=== PATIENT | male | born 1950 | race Caucasian/White ===

== ENCOUNTER 2019-10-07 11:23 | Inpatient (IN) | payer MEDICARE ==
--- NOTE | 2019-10-07 12:30 | ER Document Report ---
ED Medical Screen (RME) - General Chief Complaint: Foot Pain Stated Complaint: FOOT PAIN Time Seen by Provider: 10/07/19 12:27 Primary Care Provider: CHASIDY GANDARA NP [Primary Care Provider] - Follow up as needed Mode of Arrival: Wheelchair Information source: Patient Notes: 69-year-old female presented to ED for a large diabetic ulcer to the lateral aspect of the left foot. States he went to the wildlife veterinarian and wildlife veterinarian sent him to the ER. He does have diabetes type 2. He states that the doctor said he needed to go to the emergency room to have this surgically debrided before they could treat him. He states the last time he had any food was at 830 this morning the last time he had any fluids was at 830 this morning. States his medical history is diabetes type 2 heart murmur and he had his gallbladder removed. He states he does not drink smoke or use any illicit drugs. He is retired. Patient is alert oriented respirations regular nonlabored speaking in full sentences. He does have a very foul-smelling draining ulcer to the left bottom of the foot. I have greeted and performed a rapid initial assessment of this patient. A comprehensive ED assessment and evaluation of the patient, analysis of test results and completion of medical decision making process will be conducted by an additional ED providers. TRAVEL OUTSIDE OF THE [place] IN LAST 30 DAYS: No - Related Data Allergies/Adverse Reactions: iodine [Iodine] Allergy (Severe, Verified 10/07/19 12:22) Hives, SOB Penicillins Allergy (Severe, Verified 10/07/19 12:22) Hives, SOB Past Medical History - Past Medical History Cardiac Medical History: Reports: Hx Hypertension Denies: Hx Coronary Artery Disease, Hx Heart Attack Pulmonary Medical History: Denies: Hx Asthma, Hx Bronchitis, Hx COPD, Hx Pneumonia Neurological Medical History: Denies: Hx Cerebrovascular Accident, Hx Seizures Endocrine Medical History: Reports: Hx Diabetes Mellitus Type 2 Musculoskeltal Medical History: Reports Hx Arthritis - Generalized Past Surgical History: Reports: Hx Cholecystectomy, Hx Tonsillectomy. Denies: Hx Pacemaker - Immunizations Hx Diphtheria, Pertussis, Tetanus Vaccination: Yes Physical Exam - Vital signs Vitals: Temp Pulse Resp BP Pulse Ox 98.3 F 88 18 130/66 H 95 10/07/19 11:31 10/07/19 11:31 10/07/19 11:31 10/07/19 11:31 10/07/19 11:31 Course - Vital Signs Vital signs: Temp Pulse Resp BP Pulse Ox 98.3 F 88 18 130/66 H 95 10/07/19 11:31 10/07/19 11:31 10/07/19 11:31 10/07/19 11:31 10/07/19 11:31 Doctor's Discharge - Discharge Referrals: CHASIDY GANDARA [employer] [Primary Care Provider] - Follow up as needed
--- NOTE | 2019-10-07 13:26 | RADIOLOGY REPORT (SQ) ---
EXAM DESCRIPTION: FOOT LEFT COMPLETE IMAGES COMPLETED DATE/TIME: 10/07/2019 1:11 pm REASON FOR STUDY: Large diabetic ulcer bottom of the foot COMPARISON: None. NUMBER OF VIEWS: Three views. TECHNIQUE: AP, lateral and oblique radiographic images acquired of the left foot. LIMITATIONS: None. FINDINGS: MINERALIZATION: Decreased. BONES: No fracture. No definitive bony erosion or sclerosis. Decreased mineralization most signific ant about the distal metatarsals and proximal phalanges. JOINTS: No effusions. SOFT TISSUES: Soft tissue ulceration along the plantar aspect of the forefoot. Forefoot soft tissue swelling. OTHER: No other significant finding. IMPRESSION: Soft tissue ulceration and swelling about the lateral forefoot. No definitive findings of osteomyelitis. If high clinical concern MRI would be more sensitive. TECHNICAL DOCUMENTATION: JOB ID: [id number] 2010 [email or web address]- All Rights Reserved Reading location - IP/workstation name: [email or web address]
[2019-10-07 15:14] LABS: ABSOLUTE BASOPHILS # (AUTO) 0.1 10^3/uL (0.0-0.2); ABSOLUTE EOSINOPHILS # (AUTO) 0.2 10^3/uL (0.0-0.6); ABSOLUTE LYMPHOCYTES (AUTO) 2.1 10^3/uL (0.5-4.7); ABSOLUTE MONOCYTES (AUTO) 0.9 10^3/uL (0.1-1.4); ABSOLUTE NEUT (AUTO) 6.9 10^3/uL (1.7-8.2); BASOPHILS % (AUTO) 0.7 % (0-2); EOSINOPHILS % (AUTO) 1.7 % (0-6); HEMATOCRIT 44.2 % (37.9-51.0); HEMOGLOBIN 15.2 g/dL (13.5-17.0); MEAN CORPUSCULAR HEMOGLOBIN 31.4 pg (27.0-33.4); MEAN CORPUSCULAR HGB CONC 34.4 g/dL (32.0-36.0); MEAN CORPUSCULAR VOLUME 91 fl (80-97); MONOCYTES % (AUTO) 8.6 % (3-13); PLATELET COUNT 369 10^3/uL (150-450); RED BLOOD COUNT 4.85 10^6/uL (4.35-5.55); TOTAL CELLS COUNTED % (AUTO) 100 %; WHITE BLOOD COUNT 10.2 10^3/uL (4.0-10.5)
[2019-10-07 15:22] LABS: ALBUMIN 4.5 g/dL (3.5-5.0); ALKALINE PHOSPHATASE 101 U/L (38-126); ANION GAP 13 (5-19); ASPARTATE AMINO TRANSFERASE 27 U/L (17-59); BILIRUBIN,DIRECT 0.1 mg/dL (0.0-0.4); BILIRUBIN,TOTAL 0.6 mg/dL (0.2-1.3); BLOOD UREA NITROGEN 22 mg/dL (7-20); C-REACTIVE PROTEIN 52.8 mg/L (<10.0); CALCIUM 9.8 mg/dL (8.4-10.2); CARBON DIOXIDE 26 mmol/L (22-30); CHLORIDE 102 mmol/L (98-107); GLUCOSE 125 mg/dL (75-110); TOTAL PROTEIN 8.7 g/dL (6.3-8.2)
--- NOTE | 2019-10-07 17:06 | ER Document Report ---
ED General - General Chief Complaint: Foot Pain Stated Complaint: FOOT PAIN Time Seen by Provider: 10/07/19 12:27 Primary Care Provider: CHASIDY GANDARA, DIPLOMATIC OFFICER [NURSE PRACTITIONER] - Follow up as needed Mode of Arrival: Wheelchair TRAVEL OUTSIDE OF THE [place] IN LAST 30 DAYS: No - HPI Notes: 6-year-old male presents with concerns for infection to his left foot. Patient states he is unsure how he injured his foot, potentially may have stepped on something, he has neuropathy and does not have much sensation in his feet. There has been an ulcer present for the past few weeks, he is unsure the exact timeframe. His daughter at bedside states that she saw the wound recently and brought him to the electric container tester today. He saw Dr. Camacho, who recommended he c ome to the ED for admission for IV antibiotics, currently no surgical plan, will be addressed after antibiotics. Additionally patient has had swelling to his left leg, it goes up to his calf and he has some pain behind his left calf. He does report some decreased mobility, states he really only gets up to use the restroom. He is not currently on any blood thinner. He denies chest pain, dyspnea on exertion, orthopnea. He denies fevers or chills. Daughter at bedside also mentioned several times that he was on a keto diet, he had stopped briefly for the COVID pandemic, how ever has recently restarted the keto diet. - Related Data Allergies/Adverse Reactions: iodine [Iodine] Allergy (Severe, Verified 10/07/19 12:22) Hives, SOB Penicillins Allergy (Severe, Verified 10/07/19 12:22) Hives, SOB Past Medical History - General Information source: Patient - Social History Smoking Status: Never Smoker Chew tobacco use (# tins/day): No Frequency of alcohol use: None Drug Abuse: None Family History: Reviewed & Not Pertinent Patient has homicidal ideation: No - Past Medical History Cardiac Medical History: Reports: Hx Hypertension Denies: Hx Coronary Artery Disease, Hx Heart Attack Pulmonary Medical History: Denies: Hx Asthma, Hx Bronchitis, Hx COPD, Hx Pneumonia Neurological Medical History: Denies: Hx Cerebrovascular Accident, Hx Seizures Endocrine Medical History: Reports: Hx Diabetes Mellitus Type 2 Musculoskeletal Medical History: Reports Hx Arthritis - Generalized Past Surgical History: Reports: Hx Cholecystectomy, Hx Tonsillectomy. Denies: Hx Pacemaker - Immunizations Hx Diphtheria, Pertussis, Tetanus Vaccination: Yes Hx Pneumococcal Vaccination: 01/14/12 Review of Systems - Review of Systems Constitutional: denies: Chills, Fever EENT: No symptoms reported Cardiovascular: Edema. denies: Chest pain Respiratory: denies: Short of breath Gastrointestinal: No symptoms reported Genitourinary: No symptoms reported, Discharge Musculoskeletal: Leg swelling. denies: Joint swelling Skin: Lesions Hematologic/Lymphatic: denies: No symptoms reported Neurological/Psychological: denies: Weakness Physical Exam - Vital signs Vitals: Temp Pulse Resp BP Pulse Ox 98.3 F 88 18 130/66 H 95 10/07/19 11:31 10/07/19 11:31 10/07/19 11:31 10/07/19 11:31 10/07/19 11:31 - General General appearance: Appears well In distress: None - HEENT Head: Normocephalic, Atraumatic Extraocular movements intact: Yes Pupils: PERRL - Respiratory Breath sounds: Normal - Cardiovascular Rhythm: Regular Heart sounds: Normal auscultation Pulses: Normal: Dorsalis pedis Normal capillary refill: Yes - Abdominal Tenderness: Nontender - Extremities Notes: There is bilateral nonpitting edema to the left lower extremity, extending from the calf down to the foot. There is swelling to the dorsum of the left foot. There is a large ulceration to the plantar aspect of the left foot, lateral side. It is foul-smelling, no massive purulent drainage. There is erythema to the dorsum of the left foot. - Neurological Neuro grossly intact: Yes Cognition: Normal Orientation: AAOx4 Notes: Decreased sensation to feet which patient reports is chronic - Psychological Associated symptoms: Normal affect - Skin Skin Temperature: Warm Course - Re-evaluation Re-evalutation: 10/07/19 17:38 69-year-old male with large diabetic ulcer to plantar aspect of left foot, seen and evaluated by his electric container tester today. The foot is warm and well-perfused. Does have some erythema as well. Likely combination of ulcer with some evolving cellulitis, osteomyelitis not totally excluded. X-ray done through triage process does not reveal any gas. Additionally he does have a good amount of unilateral swelling to the left leg, potentially could be related to infection, however given his decreased mobility we will send him for ultrasound to evaluate for DVT. Patient is otherwise well appearing, afebrile. Will start with empiric vancomycin and cefepime. 10/07/19 19:42 Ultrasound is negative for DVT. Patient was updated on results. Patient will be admitted to the hospitalist service for further management of diabetic foot ulcer. - Vital Signs Vital signs: Temp Pulse Resp BP Pulse Ox 98.6 F 78 18 131/58 H 97 10/07/19 17:08 10/07/19 17:08 10/07/19 17:08 10/07/19 17:08 10/07/19 17:08 - Laboratory Result Diagrams: 10/07/19 14:41 10/07/19 14:41 Laboratory results interpreted by me: 10/07/19 10/07/19 14:41 15:28 ESR 97 H BUN 22 H Glucose 125 H C-Reactive Protein 52.8 H Total Protein 8.7 H - Diagnostic Test Radiology reviewed: Image reviewed, Reports reviewed Discharge - Discharge Clinical Impression: Diabetic foot ulcer Qualifiers: Diabetic foot ulcer location: other Diabetes mellitus type: type 2 Laterality: left Non-pressure ulcer stage: unspecified non-pressure ulcer stage Qualified Code(s): E11.621 - Type 2 diabetes mellitus with foot ulcer Disposition: ADMITTED INPATIENT Admitting Provider: Khang (Hospitalist) Unit Admitted: Medical Floor Referrals: CHASIDY GANDARA NP [NURSE PRACTITIONER] - Follow up as needed
[2019-10-07] MEDS ORDERED: CEFEPIME 2 GM/D5W RTU 50 ML IV ONE (17:31)
[2019-10-07] MEDS ORDERED: VANCOMYCIN HCL INJ 1000 MG VIAL IV ONE (17:32)
--- NOTE | 2019-10-07 19:16 | RADIOLOGY REPORT (SQ) ---
EXAM DESCRIPTION: VENOUS UNILATERAL LOWER IMAGES COMPLETED DATE/TIME: 10/07/2019 7:07 pm REASON FOR STUDY: left leg swelling, eval DVT COMPARISON: None. TECHNIQUE: Dynamic and static rosales scale and color images acquired of the left leg venous system. Se lected spectral images acquired with additional compression and augmentation maneuvers. The contralat eral common femoral vein and saphenofemoral junction were also imaged. Images stored on PACS. LIMITATIONS: None. FINDINGS: COMMON FEMORAL: Normal phasicity, compression and augmentation. No visualized echogenic ma terial on rosales scale. No defects on color images. FEMORAL: Normal compression and augmentation. No visualized echogenic material on rosales scale. No defe cts on color images. POPLITEAL: Normal compression, augmentation. No visualized echogenic material on rosales scale. No defec ts on color images. CALF VESSELS: Normal compression, augmentation. No visualized echogenic material on rosales scale. No de fects on color images. Evaluation of the peroneal veins was limited because of swelling. GSV and SSV: Normal compression, augmentation. No visualized echogenic material on rosales scale. No def ects on color images. ANY DEEP VENOUS INSUFFICIENCY: Not evaluated. ANY EVIDENCE OF POPLITEAL CYST: No. OTHER: No other significant finding. CONTRALATERAL COMMON FEMORAL VEIN AND SAPHENOFEMORAL JUNCTION: Normal phasicity, compression and augmentation. No visualized echogenic material on rosales scale. No de fects on color images. IMPRESSION: NO EVIDENCE DVT OR SVT IN THE LEFT LEG. TECHNICAL DOCUMENTATION: JOB ID: [id number] 2010 [employer] All Rights Reserved Reading location - IP/workstation name: [email or web address]
[2019-10-07] MEDS ORDERED: MAG HYDROX/AL HYDROX/SIMETH SUSP 30 ML UDCUP PO PRN (19:52)
[2019-10-07] MEDS ORDERED: MAGNESIUM HYDROXIDE SUSP 30 ML UDCUP PO PRN (19:52)
[2019-10-07] MEDS ORDERED: PROMETHAZINE HCL INJ 25 MG/1 ML VIAL IV PRN (19:52)
[2019-10-07] MEDS ORDERED: MORPHINE SULFATE 10 MG/ML INJ IV PRN ×3 (19:59→21:31)
[2019-10-07] MEDS ORDERED: LORAZEPAM INJ 2 MG/1 ML VIAL IV PRN (19:59)
[2019-10-07] MEDS ORDERED: INSULIN REG, HUMAN 100 UNIT/ML 3 ML VIAL (PYX) SUBCUT PRN (19:59)
[2019-10-07] MEDS ORDERED: MELATONIN 5 MG TABLET PO PRN (19:59)
[2019-10-07] MEDS ORDERED: GUAIFENESIN SYRP 200 MG/10 ML UDC PO PRN (19:59)
[2019-10-07] MEDS ORDERED: ACETAMINOPHEN 325 MG TABLET PO PRN (19:59)
[2019-10-07] MEDS ORDERED: GLUCAGON,HUMAN RECOMB 1 MG INJ IM PRN (20:00)
[2019-10-07] MEDS ORDERED: DEXTROSE 50%-WATER 25 GM/50 ML DISP.SYRIN IV PRN ×2 (20:00)
[2019-10-07] MEDS ORDERED: DEXTROSE 40% GEL 15 GM TUBE PO PRN ×2 (20:00)
[2019-10-07] MEDS ORDERED: HYDRALAZINE HCL INJ/PF 20 MG/1 ML SDV IV PRN (20:07)
[2019-10-07] MEDS ORDERED: METOPROLOL TARTRATE PF/INJ 5 MG/5 ML SDV IV PRN (20:07)
--- NOTE | 2019-10-07 20:36 | PDOC CONSULTATION ---
Consultation Consult Date: 10/07/19 Attending physician:: JEANETTE AU Provider Consulted: LISSETTE PÉREZ Consult reason:: Infected left foot and leg History of Present Illness Admission Date/PCP: 10/07/19 20:10 TERRI BRAUN DO History of Present Illness: CHRISSIE JOSEPH is a 69 year old male Presents to the emergency department via ground rescue complaining of several week history of left leg swelling, redness, and pain. Is also found to have a left foot ulcer. Patient seen by his nurse clinician and sent to the emergency department for further evaluation. Patient been accompanied by his daughter and the relative who was recently sick but tested negative for COVID-19. Patient himself is not been tested for COVID-19. He is now being admitted for left leg cellulitis and mal perforans ulcer of the left fifth metatarsal head. Past Medical History Cardiac Medical History: Reports: Hypertension, Other - Dysrhythmia/arrhythmia Denies: Atrial Fibrillation, Congestive Heart Failure, Coronary Artery Disease, DVT, Myocardial Infarction, Hyperlipidema, Peripheral Vascular Disease, Pulmonary Embolism Pulmonary Medical History: Denies: Asthma, Bronchitis, Chronic Obstructive Pulmonary Disease (COPD), Pneumonia EENT Medical History: Denies: Cataracts, Ears - Hearing aids Neurological Medical History: Reports: Other - Diabetic peripheral neuropathy bilateral lower extremities Denies: Hemorrhagic CVA, Ischemic CVA, Seizures Endocrine Medical History: Reports: Diabetes Mellitus Type 2, Obesity Denies: Diabetes Mellitus Type 1, Hyperthyroidism, Hypothyroidism Renal/ Medical History: Reports: Nephrolithiasis Denies: Chronic Kidney Disease Malignancy Medical History: Reports: None GI Medical History: Denies: Cirrhosis, Crohn's Disease, Gastroesophageal Reflux Disease, Hepatitis, Peptic Ulcer Disease, Ulcerative Colitis Musculoskeltal Medical History: Reports: Arthritis - Generalized osteoarthritis Denies: Gout Skin Medical History: Denies: Eczema, Psoriasis Psychiatric Medical History: Denies: Alcohol Dependency, Substance Abuse, Tobacco Dependency Traumatic Medical History: Reports: None Hematology: Denies: Anemia, Bleeding Tendencies Infectious Medical History: Reports: None Past Surgical History Past Surgical History: Reports: Cholecystectomy, Tonsillectomy, Other - Colonoscopy Denies: Pacemaker Social History Lives with: Family Smoking Status: Never Smoker Electronic Cigarette use?: No Frequency of Alcohol Use: None Hx Recreational Drug Use: No Drugs: None Hx Prescription Drug Abuse: No - Advance Directive Resuscitation Status: Full Code Family History Family History: None, CAD, Malignancy Parental Family History Reviewed: No Children Family History Reviewed: No Sibling(s) Family History Reviewed.: No Medication/Allergy Home Medications: Aspirin [Ecotrin 325 mg EC Tablet] 325 mg PO DAILY #0 tabec 04/18/14 Glyburide [Diabeta 5 mg Tablet] 5 mg PO QAM #30 tablet 04/18/14 Lisinopril [Prinivil 5 mg Tablet] 2.5 mg PO DAILY #30 tablet 04/18/14 Metoprolol Succinate [Toprol Xl 25 mg Tab.sr] 25 mg PO DAILY #30 tab.sr.24h 04/18/14 Allergies/Adverse Reactions: iodine [Iodine] Allergy (Severe, Verified 10/07/19 12:22) Hives, SOB Penicillins Allergy (Severe, Verified 10/07/19 12:22) Hives, SOB Review of Systems Constitutional: PRESENT: as per HPI Eyes: ABSENT: visual disturbances Ears: ABSENT: hearing changes Cardiovascular: ABSENT: chest pain, dyspnea on exertion, edema, orthropnea, palpitations Respiratory: ABSENT: cough, hemoptysis Gastrointestinal: ABSENT: abdominal pain, constipation, diarrhea, hematemesis, hematochezia, nausea, vomiting Genitourinary: ABSENT: dysuria, hematuria Musculoskeletal: PRESENT: other - Left swelling, weakness of the left ankle joint Neurological: PRESENT: numbness, paresthesias, other - Paresthesias the left and right lower extremities Physical Exam Vital Signs: Temp Pulse Resp BP Pulse Ox 98.6 F 78 18 131/58 H 97 10/07/19 17:08 10/07/19 17:08 10/07/19 17:08 10/07/19 17:08 10/07/19 17:08 Intake & Output 10/06/19 10/07/19 10/08/19 06:59 06:59 06:59 Weight 95.5 kg General appearance: PRESENT: no acute distress Head exam: PRESENT: normocephalic Mouth exam: PRESENT: dry mucosa Neck exam: PRESENT: full ROM Respiratory exam: PRESENT: clear to auscultation rohini Cardiovascular exam: PRESENT: RRR Pulses: PRESENT: normal carotid pulses, normal radial pulses, normal femoral pulses, normal dorsalis pedis pul, other - Patient does have a bilateral dorsalis pedis pulses. The feet are warm. GI/Abdominal exam: PRESENT: soft Rectal exam: PRESENT: deferred Musculoskeletal exam: PRESENT: other - Generalized swelling of the left leg with erythema, pitting edema from the pretibial area all the way down to the ankle including the foot and forefoot. There is an open necrotic left fifth metatarsal wound on the plantar surface, with foul smell. All toes are intact; chronic onychomycosis Neurological exam: PRESENT: oriented to person, oriented to place, oriented to time, oriented to situation Psychiatric exam: PRESENT: appropriate affect Skin exam: PRESENT: dry Results Laboratory Results: 10/07/19 14:41 10/07/19 14:41 10/07/19 10/07/19 14:41 14:41 WBC 10.2 RBC 4.85 Hgb 15.2 Hct 44.2 MCV 91 MCH 31.4 MCHC 34.4 RDW 12.0 Plt Count 369 Seg Neutrophils % 68.0 Sodium 140.8 Potassium 5.0 Chloride 102 Carbon Dioxide 26 Anion Gap 13 BUN 22 H Creatinine 1.00 Est GFR ( Amer) > 60 Glucose 125 H Calcium 9.8 Total Bilirubin 0.6 AST 27 Alkaline Phosphatase 101 C-Reactive Protein 52.8 H Total Protein 8.7 H Albumin 4.5 Lipase 38.1 Impressions: Foot X-Ray 10/07/19 12:28 IMPRESSION: Soft tissue ulceration and swelling about the lateral forefoot. No definitive findings of osteomyelitis. If high clinical concern MRI would be more sensitive. Venous Doppler Study 10/07/19 17:30 IMPRESSION: NO EVIDENCE DVT OR SVT IN THE LEFT LEG. 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 Recommendations: 1. Patient needs admission to the hospital service, n.p.o. after midnight, IV fluids intravenous antibiotics, and blood sugar management 2. We will take patient to the operating room tomorrow, October 07, for left foot debridement including mal perforans ulcer, possible extraction of metatarsal-proximal phalangeal joint pending intraoperative findings. 3. We will obtain rapid COVID-19 test. (2) Onychomycosis Is this a current diagnosis for this admission?: Yes (3) Cellulitis of left leg Is this a current diagnosis for this admission?: Yes (4) Diabetic peripheral neuropathy associated with type 2 diabetes mellitus Is this a current diagnosis for this admission?: Yes (5) Hypertension Qualifiers: Hypertension type: essential hypertension Qualified Code(s): I10 - Essential (primary) hypertension Is this a current diagnosis for this admission?: Yes - Time Time Spent: 30 to 50 Minutes Smoking Cessation Education: over 10 minutes Medications reviewed and adjusted accordingly: Yes Anticipated discharge: Home
[2019-10-07] MEDS: VANCOMYCIN HCL 1,000 MG in DEXTROSE 5%-WATER 250 ML IV SCH (23:14)
[2019-10-07] MEDS ORDERED: MEROPENEM 500 MG VIAL ONE (23:38)
[2019-10-08] MEDS: MEROPENEM 500 MG in NORMAL SALINE 50 ML IV SCH ×4 (00:34→22:04)
[2019-10-08] MEDS: HEPARIN SOD (PORCINE) 5,000 UNIT/ML 1 ML VIAL SUBCUT SCH ×2 (00:35→06:04)
[2019-10-08] MEDS: FAMOTIDINE 20 MG TABLET PO SCH ×3 (00:36→22:18)
--- NOTE | 2019-10-08 01:01 | PDOC H&P ---
History of Present Illness Admission Date/PCP: 10/07/2019 19:45 CHASIDY GANDARA NP Patient complains of: Foot pain History of Present Illness: CHRISSIE JOSEPH is a 69 year old male who presents the emergency room with a 3-week history of left foot pain. He admits progressively worsening pain accompanied by swelling and redness of his left foot gradually spreading to his left lower leg over the last 3 weeks. The pain is a constant discomfort of mild intensity without radiation, that is mildly increased with weightbearing. The pain is also associated with a foul odor emanating from his left foot over the last few days. He denies other associated or accompanying signs and symptoms. He denies prior similar episodes. He has not identified any additional aggravating or ameliorating factors for his left foot pain. He was seen in his doctor's office today who recommended he come to the emergency room for treatment. In the emergency room he was noted to have a diabetic foot ulcer with eschar over the lateral aspect of the plantar portion of the left midfoot/forefoot. He was subsequently admitted to the hospital for further evaluation and treatment with surgical consultation to be performed by Dr. Khan. Past Medical History Cardiac Medical History: Reports: Hypertension, Other - Dysrhythmia/arrhythmia Denies: Atrial Fibrillation, Congestive Heart Failure, Coronary Artery Disease, DVT, Myocardial Infarction, Hyperlipidema, Peripheral Vascular Disease, Pulmonary Embolism Pulmonary Medical History: Denies: Asthma, Bronchitis, Chronic Obstructive Pulmonary Disease (COPD), Pneumonia EENT Medical History: Denies: Cataracts, Ears - Hearing aids Neurological Medical History: Reports: Other - Diabetic peripheral neuropathy bilateral lower extremities Denies: Hemorrhagic CVA, Ischemic CVA, Seizures Endocrine Medical History: Reports: Diabetes Mellitus Type 2, Obesity Denies: Diabetes Mellitus Type 1, Hyperthyroidism, Hypothyroidism Renal/ Medical History: Reports: Nephrolithiasis Denies: Chronic Kidney Disease Malignancy Medical History: Reports: None GI Medical History: Denies: Cirrhosis, Crohn's Disease, Gastroesophageal Reflux Disease, He patitis, Peptic Ulcer Disease, Ulcerative Colitis Musculoskeltal Medical History: Reports: Arthritis - Generalized osteoarthritis Denies: Gout Skin Medical History: Denies: Eczema, Psoriasis Psychiatric Medical History: Denies: Alcohol Dependency, Substance Abuse, Tobacco Dependency Traumatic Medical History: Reports: None Hematology: Denies: Anemia, Bleeding Tendencies Infectious Medical History: Reports: None Past Surgical History Past Surgical History: Reports: Cholecystectomy, Tonsillectomy, Other - Colonoscopy Social History Information Source: Patient, Relative Lives with: Family Smoking Status: Never Smoker Electronic Cigarette use?: No Frequency of Alcohol Use: None Hx Recreational Drug Use: No Drugs: None Hx Prescription Drug Abuse: No - Advance Directive Resuscitation Status: Full Code Surrogate healthcare decision maker:: Rhianna Cooperdebbie Family History Family History: CAD, Malignancy Parental Family History Reviewed: Yes Children Family History Reviewed: No Sibling(s) Family History Reviewed.: Yes Medication/Allergy Home Medications: Aspirin [Ecotrin 325 mg EC Tablet] 325 mg PO DAILY #0 tabec 04/18/14 Glyburide [Diabeta 5 mg Tablet] 5 mg PO QAM #30 tablet 04/18/14 Lisinopril [Prinivil 5 mg Tablet] 2.5 mg PO DAILY #30 tablet 04/18/14 Metoprolol Succinate [Toprol Xl 25 mg Tab.sr] 25 mg PO DAILY #30 tab.sr.24h 04/18/14 Allergies/Adverse Reactions: iodine [Iodine] Allergy (Severe, Verified 10/07/19 12:22) Hives, SOB Penicillins Allergy (Severe, Verified 10/07/19 12:22) Hives, SOB Review of Systems Constitutional: ABSENT: chills, fever(s) Eyes: ABSENT: visual disturbances, other - Eye pain Ears: ABSENT: hearing changes, other - Ear pain Nose, Mouth, and Throat: ABSENT: headache(s), sore throat Cardiovascular: ABSENT: chest pain, palpitations Respiratory: ABSENT: cough, dyspnea Gastrointestinal: ABSENT: abdominal pain, constipation, diarrhea, nausea, vomiting Genitourinary: ABSENT: dysuria, hematuria Musculoskeletal: ABSENT: back pain, joint swelling Integumentary: PRESENT: as per HPI, erythema, wounds. ABSENT: pruritus, rash Neurological: PRESENT: numbness - Diabetic peripheral neuropathy of lower extremities, paresthesias - Diabetic peripheral neuropathy of lower extremities. ABSENT: confusion, convulsions, focal weakness, memory loss, syncope Psychiatric: ABSENT: anxiety, depression Endocrine: ABSENT: cold intolerance, heat intolerance Hematologic/Lymphatic: ABSENT: easy bleeding, easy bruising Allergic/Immunologic: ABSENT: seasonal rhinorrhea Physical Exam Vital Signs: Temp Pulse Resp BP Pulse Ox 98.6 F 78 18 131/58 H 97 10/07/19 17:08 10/07/19 17:08 10/07/19 17:08 10/07/19 17:08 10/07/19 17:08 Intake & Output 10/05/19 10/06/19 10/07/19 23:59 23:59 23:59 Weight 95.5 kg General appearance: PRESENT: no acute distress, cooperative, obese Head exam: PRESENT: atraumatic, normocephalic Eye exam: PRESENT: conjunctiva pink. ABSENT: conjunctival injection, scleral icterus Ear exam: PRESENT: normal external ear exam. ABSENT: bleeding, drainage Mouth exam: PRESENT: dry mucosa, neck supple Neck exam: ABSENT: thyromegaly, tracheal deviation Respiratory exam: PRESENT: clear to auscultation rohini, symmetrical, unlabored Cardiovascular exam: PRESENT: RRR. ABSENT: clicks, gallop, rubs Pulses: PRESENT: normal radial pulses, normal dorsalis pedis pul Vascular exam: PRESENT: normal capillary refill. ABSENT: pallor GI/Abdominal exam: PRESENT: normal bowel sounds, soft. ABSENT: tenderness Rectal exam: PRESENT: deferred Extremities exam: PRESENT: pedal edema, +1 edema - Distal left lower leg and foot with 1+ pitting edema, erythema and local tenderness, other - 3 cm ulceration with eschar of the lateral plantar aspect of the left forefoot in the area under the fifth metatarsal phalangeal joint.. ABSENT: joint swelling Musculoskeletal exam: ABSENT: deformity, dislocation Neurological exam: PRESENT: alert, oriented to person, oriented to place, oriented to time, oriented to situation, CN II-XII grossly intact, motor sensory deficit - Decreased sensation bilateral lower extremities Psychiatric exam: PRESENT: appropriate affect, normal mood Skin exam: PRESENT: dry, warm, other - Ulceration of left forefoot with eschar formation. Erythema and edema with mild local tenderness of the left foot and distal left lower extremity. ABSENT: jaundice, rash, urticaria Results Laboratory Results: 10/07/19 14:41 10/07/19 14:41 10/07/19 10/07/19 14:41 14:41 WBC 10.2 RBC 4.85 Hgb 15.2 Hct 44.2 MCV 91 MCH 31.4 MCHC 34.4 RDW 12.0 Plt Count 369 Seg Neutrophils % 68.0 Sodium 140.8 Potassium 5.0 Chloride 102 Carbon Dioxide 26 Anion Gap 13 BUN 22 H Creatinine 1.00 Est GFR ( Amer) > 60 Glucose 125 H Calcium 9.8 Total Bilirubin 0.6 AST 27 Alkaline Phosphatase 101 C-Reactive Protein 52.8 H Total Protein 8.7 H Albumin 4.5 Lipase 38.1 Impressions: Foot X-Ray 10/07/19 12:28 IMPRESSION: Soft tissue ulceration and swelling about the lateral forefoot. No definitive findings of osteomyelitis. If high clinical concern MRI would be more sensitive. Venous Doppler Study 10/07/19 17:30 IMPRESSION: NO EVIDENCE DVT OR SVT IN THE LEFT LEG. Assessment and Plan - Diagnosis (1) Diabetic foot ulcer Qualifiers: Diabetic foot ulcer location: midfoot Diabetes mellitus type: type 2 Laterality: left Non-pressure ulcer stage: unspecified non-pressure ulcer stage Qualified Code(s): E11.621 - Type 2 diabetes mellitus with foot ulcer; L97.429 - Non-pressure chronic ulcer of left heel and midfoot with unspecified severity Is this a current diagnosis for this admission?: Yes (2) Diabetes mellitus type 2 in obese Is this a current diagnosis for this admission?: Yes (3) Diabetic peripheral neuropathy associated with type 2 diabetes mellitus Is this a current diagnosis for this admission?: Yes (4) Hypertension Qualifiers: Hypertension type: essential hypertension Qualified Code(s): I10 - Essential (primary) hypertension Is this a current diagnosis for this admission?: Yes (5) Generalized osteoarthritis Is this a current diagnosis for this admission?: Yes - Plan Summary Summary: Patient will be admitted to the medical floor he will receive routine supportive and symptomatic cares. He will be seen in consultation by Dr. Usman Khan for surgical evaluation and treatment. He will be continued on IV antibiotic therapy utilizing vancomycin and cefepime. He will receive morphine sulfate 2 to 4 mg IV every 2 hours as needed pain. He will receive Ativan 1 mg IV every 4 hours as needed for anxiety or restlessness. Before meals and at bedtime Accu- Cheks to be performed with sliding scale insulin used for hyperglycemia and a hypoglycemic protocol in place. Patient will be on a diabetic and cardiac restricted diet. Patient's home medications will be continued, as appropriate, and his medication list has been verified and reconciled. CBCs, metabolic profiles and additional laboratory and/or radiographic evaluations will be obtained as appropriate. - Time Time Spent with patient: 15-24 minutes Medications reviewed and adjusted accordingly: Yes Anticipated Discharge Disposition: Home with Home Health Anticipated Discharge Timeframe: Undetermined - Inpatient Certification Based on my medical assessment, after consideration of the patient's comorbidities, presenting symptoms, or acuity I expect that the services needed warrant INPATIENT care.: Yes I certify that my determination is in accordance with my understanding of Medicare's requirements for reasonable and necessary INPATIENT services [42 CFR 412.3e].: Yes Medical Necessity: Need For IV Fluids, Need for IV Antibiotics, Need for Surgery, Risk of Complication if Not Cared For in Hospital
[2019-10-08 04:30] LABS: HEMATOCRIT 38.2 % (37.9-51.0); HEMOGLOBIN 13.2 g/dL (13.5-17.0); MEAN CORPUSCULAR HEMOGLOBIN 31.5 pg (27.0-33.4); MEAN CORPUSCULAR HGB CONC 34.7 g/dL (32.0-36.0); MEAN CORPUSCULAR VOLUME 91 fl (80-97); PLATELET COUNT 296 10^3/uL (150-450); RED BLOOD COUNT 4.21 10^6/uL (4.35-5.55); RED CELL DISTRIBUTION WIDTH 11.9 % (11.5-14.0); WHITE BLOOD COUNT 7.1 10^3/uL (4.0-10.5)
[2019-10-08 04:54] LABS: APPEARANCE,URINE CLEAR; BILIRUBIN,URINE NEGATIVE (NEGATIVE); COLOR,URINE YELLOW; GLUCOSE, URINE NEGATIVE (NEGATIVE); KETONES,URINE TRACE mg/dL (NEGATIVE); PROTEIN,URINE NEGATIVE (NEGATIVE); UROBILINOGEN,URINE NEGATIVE mg/dL (<2.0)
[2019-10-08 04:56] LABS: ALBUMIN 3.5 g/dL (3.5-5.0); ALKALINE PHOSPHATASE 83 U/L (38-126); ANION GAP 11 (5-19); ASPARTATE AMINO TRANSFERASE 22 U/L (17-59); BILIRUBIN,DIRECT 0.3 mg/dL (0.0-0.4); BILIRUBIN,TOTAL 0.6 mg/dL (0.2-1.3); BLOOD UREA NITROGEN 23 mg/dL (7-20); CARBON DIOXIDE 23 mmol/L (22-30); CHLORIDE 106 mmol/L (98-107); CHOLESTEROL 159.41 mg/dL (0-200); GLUCOSE 75 mg/dL (75-110); POTASSIUM 4.3 mmol/L (3.6-5.0); TOTAL PROTEIN 6.5 g/dL (6.3-8.2); TRIGLYCERIDES 133 mg/dL (<150)
[2019-10-08 05:06] LABS: DIRECT LDL 111 mg/dL (<100)
[2019-10-08] MEDS ORDERED: MEROPENEM 500 MG VIAL ONE (05:47)
[2019-10-08] MEDS: DOCUSATE SODIUM 100 MG CAPSULE PO SCH ×2 (09:08→17:52)
[2019-10-08] MEDS: VANCOMYCIN HCL 1,000 MG in DEXTROSE 5%-WATER 250 ML IV SCH ×2 (09:19→22:06)
[2019-10-08] MEDS ORDERED: CEFEPIME 1 GM/D5W RTU 1 GM/50 ML RTUPB IV SCH (10:00)
[2019-10-08] MEDS ORDERED: VANCOMYCIN HCL INJ 1000 MG VIAL IV SCH (10:00)
--- NOTE | 2019-10-08 10:25 | PDOC PROGRESS REPORT ---
Subjective Progress Note for:: 10/08/19 Subjective:: Assessment: Left forefoot plantar diabetic ulcer at the fifth metatarsal phalangeal joint Type 1 diabetes Plan: MRI of the left foot today to rule out osteomyelitis Surgical planning will be tailored according to the MRI findings Continue n.p.o. Continue IV fluids Reason For Visit: DIABETIC FOOT ULCER Physical Exam Vital Signs: Temp Pulse Resp BP Pulse Ox 98.1 F 82 18 101/46 L 90 L 10/08/19 07:55 10/08/19 07:55 10/08/19 07:55 10/08/19 07:55 10/08/19 07:55 Intake & Output 10/07/19 10/08/19 10/09/19 06:59 06:59 06:59 Intake Total 460 Output Total 75 Balance 385 Weight 95.7 kg Results Laboratory Results: 10/08/19 04:10 10/08/19 04:10 10/07/19 10/07/19 10/08/19 14:41 14:41 04:10 WBC 10.2 7.1 RBC 4.85 4.21 L Hgb 15.2 13.2 L Hct 44.2 38.2 MCV 91 91 MCH 31.4 31.5 MCHC 34.4 34.7 RDW 12.0 11.9 Plt Count 369 296 Seg Neutrophils % 68.0 Sodium 140.8 Potassium 5.0 Chloride 102 Carbon Dioxide 26 Anion Gap 13 BUN 22 H Creatinine 1.00 Est GFR ( Amer) > 60 Glucose 125 H Calcium 9.8 Magnesium Total Bilirubin 0.6 AST 27 Alkaline Phosphatase 101 C-Reactive Protein 52.8 H Total Protein 8.7 H Albumin 4.5 Triglycerides Cholesterol LDL Cholesterol Direct VLDL Cholesterol HDL Cholesterol Lipase 38.1 TSH Urine Color Urine Appearance Urine pH Ur Specific P[place]itt Urine Protein Urine Glucose (UA) Urine Ketones Urine Blood Urine RBC (Auto) 10/08/19 10/08/19 10/08/19 04:10 04:10 04:21 WBC RBC Hgb Hct MCV MCH MCHC RDW Plt Count Seg Neutrophils % Sodium 139.8 Potassium 4.3 Chloride 106 Carbon Dioxide 23 Anion Gap 11 BUN 23 H Creatinine 0.88 Est GFR ( Amer) > 60 Glucose 75 Calcium 9.0 Magnesium 2.1 Total Bilirubin 0.6 AST 22 Alkaline Phosphatase 83 C-Reactive Protein Total Protein 6.5 Albumin 3.5 Triglycerides 133 Cholesterol 159.41 LDL Cholesterol Direct 111 H VLDL Cholesterol 27.0 HDL Cholesterol 23 L Lipase TSH 1.57 Urine Color YELLOW Urine Appearance CLEAR Urine pH 5.0 Ur Specific [place] 1.020 Urine Protein NEGATIVE Urine Glucose (UA) NEGATIVE Urine Ketones TRACE H Urine Blood SMALL H Urine RBC (Auto) 2 Impressions: Foot X-Ray 10/07/19 12:28 IMPRESSION: Soft tissue ulceration and swelling about the lateral forefoot. No definitive findings of osteomyelitis. If high clinical concern MRI would be more sensitive. Venous Doppler Study 10/07/19 17:30 IMPRESSION: NO EVIDENCE DVT OR SVT IN THE LEFT LEG. Assessment & Plan - Time Anticipated Discharge Disposition: Home, Self Care Anticipated Discharge Timeframe: After surgery and was medically ready as per the hospitalist
--- NOTE | 2019-10-08 14:26 | RADIOLOGY REPORT (SQ) ---
EXAM DESCRIPTION: MRI LT LOWER EXTREMITY WITHOUT IMAGES COMPLETED DATE/TIME: 10/08/2019 2:01 pm REASON FOR STUDY: MRI Left lower leg; r/o osteo COMPARISON: None. TECHNIQUE: Multiplanar imaging of the lower left leg from the mid calf to the ankle to include fat a nd fluid sensitive sequences. LIMITATIONS: None. FINDINGS: BONE MARROW: No marrow signal alteration. Specifically no marrow replacement or marrow ed rae. No evidence for osteomyelitis. No cortical break through. SOFT TISSUES: No soft tissue abscess. Edema in the subcutaneous fatty tissues. Fatty atrophy of the musculature. OTHER: No other significant finding. IMPRESSION: NO EVIDENCE FOR OSTEOMYELITIS. THERE IS DIFFUSE SUBCUTANEOUS EDEMA. TECHNICAL DOCUMENTATION: JOB ID: [id number] 2010 [employer]- All Rights Reserved Reading location - IP/workstation name: [email or web address]
--- NOTE | 2019-10-08 14:31 | RADIOLOGY REPORT (SQ) ---
EXAM DESCRIPTION: MRI LT LOWER EXTREMITY WITHOUT IMAGES COMPLETED DATE/TIME: 10/08/2019 2:01 pm REASON FOR STUDY: MRI Left foot; R/o osteomyelitis COMPARISON: None. TECHNIQUE: Multiplanar imaging of the left foot to include fat and fluid sensitive sequences. LIMITATIONS: None. FINDINGS: BONE MARROW: Abnormal marrow signal involving most of the proximal phalanx of the 5th toe. Decreased signal on T1 and increased signal on STIR images. Questionable minimal involvement of th e head of the 5th metatarsal and base of the distal phalanx. SOFT TISSUES: Soft tissue edema/inflammation involving the lateral foot at the level of the 5th toe. OTHER: No other significant finding. IMPRESSION: FINDINGS CONSISTENT WITH OSTEOMYELITIS INVOLVING THE MAJORITY OF THE PROXIMAL PHALANX OF THE 5TH TOE. THERE IS ASSOCIATED EDEMA/ INFLAMMATION IN THE ADJACENT SOFT TISSUES. NO EVIDENCE OF SOFT TISSUE ABSCESS. TECHNICAL DOCUMENTATION: JOB ID: [id number] 2010 [employer]- All Rights Reserved Reading location - IP/workstation name: [email or web address]
--- NOTE | 2019-10-08 15:37 | Operative Report ---
Operative Report DATE OF SURGERY: 10/08/19 PREOPERATIVE DIAGNOSIS: Acute cholecystitis with cholelithiasis POSTOPERATIVE DIAGNOSIS: Same OPERATION: Laparoscopically cystectomy; extensive lysis of adhesions SURGEON: GABRIELA MURPHY ANESTHESIA: GA - Plus 25 mL of half percent Marcaine with epinephrine TISSUE REMOVED OR ALTERED: Gallbladder COMPLICATIONS: None ESTIMATED BLOOD LOSS: 80 mL INTRAOPERATIVE FINDINGS: Extremely inflamed gallbladder surrounded by a large amount of intra-abdominal lesions with greater omentum and stomach PROCEDURE: The procedure was done in the operating room. The patient was placed in a supine position, general anesthesia induced by endotracheal intubation, the abdomen was prepped and draped in usual fashion. An incision was made just above the umbilicus with a #15 blade, the skin was tented with towel clips and a 5 mm port with Optiview adapter and scope was inserted through the abdominal wall into the peritoneal cavity. CO2 pneumoperitoneum was obtained, under direct visualization a 12 mm port was inserted in the epigastrium and two 5 mm ports were placed in the right lateral quadrant of the abdomen under direct visualization. The patient was placed in steep reverse Trendelenburg position, the right side was elevated, the gallbladder fundus was grasped and the gallbladder was elevated and retroflexed; the cystic neck was identified, grasped, and pulled anterior to the patient's right with exposure of the triangle of Calot. Large amount of patient's were identified between the body and neck of the gallbladder and the greater omentum as well as the stomach. It took about 30 minutes of dissection to finally identify the neck and body of the gallbladder, all adhesions were divided with hook cautery bluntly. Moderate amount of blood loss was noted from the dissection of the greater omentum. The critical view of safety was obtained by dividing the peritoneal attachments of the gallbladder body both medially and laterally with a hook cautery. When this was accomplished, the hook cautery dissection was continued toward the cystic neck. An opening was then obtained posterior to the cystic duct which was enlarged with a peanut dissector and with a right angle dissector. Once the critical view of safety was obtained, the cystic duct was carefully dissected with a hook cautery and a space was developed between the cystic duct and cystic artery with a right angle dissector. Both were then double clipped proximally and distally and divided with scissors. The gallbladder was dissected from the liver bed using hook cautery at high settings, and extracted from the peritoneal cavity with an Endobag through the epigastric port. The pneumoperitoneum was then re-established, the gallbladder fossa was examined and found to be free from bile staining. A moderate amount of bleeding was noted from the liver surface, this was controlled with hook cautery high setting. The right upper quadrant was then irrigated with normal saline until clear. 10 mL of FloSeal were then applied to the gallbladder fossa followed by a large piece of Surgicel. Bleeding was noted following cauterization of the liver bed as well as application of FloSeal and Surgicel. A 19 mm Omani round Feng drain was inserted through the epigastric port and extracted from the left upper quadrant abdominal port; it was placed in the gallbladder fossa under direct visualization and secured to the skin with a 2-0 nylon suture. Final inspection the gallbladder fossa coronary FloSeal and Surgicel did not reveal any active bleeding, the drain was seen to be satisfactory infrahepatic position within the gallbladder fossa. The epigastric fascial defect was closed with a [id number] 0 Vicryl suture, placed with a fascia closure device under direct visualization, and left untied. All instruments were removed, the CO2 pneumoperitoneum was released, and all the ports were removed. The epigastric fascial defect was closed with the previously placed [id number] 0 Vicryl suture, all skin incisions were closed with a 4-0 PDS running subcuticular suture, and Dermabond was applied. The patient tolerated the procedure well, was extubated, and transferred to the recovery room in satisfactory conditions.
[2019-10-08] MEDS ORDERED: NORMAL SALINE 1000 ML 1,000 ML IV PRN (15:40)
--- NOTE | 2019-10-08 15:54 | CDI QUERY ---
<ELENA BASS - Last Filed: 10/08/19 15:53> CDI Query CDI Review: Dr Murphy, Is this the correct op note for Mr Meza? <GABRIELA MURPHY - Last Filed: 10/08/19 18:51> CDI Query Agree with Query: No - op note dictated in error
[2019-10-08] MEDS ORDERED: ONDANSETRON HCL INJ/PF 4 MG/2 ML SDV ONE (19:06)
[2019-10-08] MEDS ORDERED: FENTANYL CITRATE INJ/PF 100 MCG/2 ML AMPUL ONE (19:06)
[2019-10-08] MEDS ORDERED: MIDAZOLAM 2 MG/2 ML INJ ONE (19:06)
[2019-10-08] MEDS ORDERED: KETAMINE HCL INJ 500 MG/10 ML VIAL ONE (19:06)
[2019-10-08] MEDS ORDERED: PROPOFOL INJ 200 MG/20 ML VIAL IV ONE (19:07)
[2019-10-08] MEDS ORDERED: DEXMEDETOMIDINE INJ 80 MCG/20 ML VIAL IV ONE (19:07)
[2019-10-08] MEDS ORDERED: BUPIVACAINE HCL 0.25 % INJ/PF (2.5 MG/1 ML) 30 ML VIAL ONE (19:16)
[2019-10-08] MEDS ORDERED: BUPIVACAINE HCL 0.5 % INJ/PF 30 ML SDV ONE (19:16)
[2019-10-08] MEDS ORDERED: LIDOCAINE 1% INJ-PF (10 MG/ML) 30 ML SDV ONE (19:16)
[2019-10-08] MEDS ORDERED: FENTANYL CITRATE INJ/PF 100 MCG/2 ML AMPUL IV PRN ×3 (19:38)
[2019-10-08] MEDS ORDERED: PROMETHAZINE HCL INJ 25 MG/1 ML VIAL IV PRN (19:38)
[2019-10-08] MEDS ORDERED: MORPHINE SULFATE 10 MG/ML INJ IV PRN (19:38)
[2019-10-08] MEDS ORDERED: DIPHENHYDRAMINE HCL 50 MG/ML VIAL IV PRN (19:38)
--- NOTE | 2019-10-08 20:55 | Operative Report ---
Operative Report DATE OF SURGERY: 10/08/19 PREOPERATIVE DIAGNOSIS: Left fifth toe osteomyelitis; left plantar surface diab etic skin ulcer at the fifth metatarsal phalangeal joint POSTOPERATIVE DIAGNOSIS: Same OPERATION: Left fifth toe ray amputation; left foot skin debridement full- thickness sharp down to bone SURGEON: GABRIELA MURPHY ANESTHESIA: LMAC - +25 mL of half percent Marcaine without epinephrine TISSUE REMOVED OR ALTERED: Left fifth toe with left fifth metatarsal distal head COMPLICATIONS: None ESTIMATED BLOOD LOSS: Negligible INTRAOPERATIVE FINDINGS: Diabetic skin ulcer being about 2 cm in diameter of the plantar surface left foot, at the level of the fifth metatarsophalangeal joint PROCEDURE: The procedure was done in the operating room, the patient was placed in a supine position, general anesthesia induced by intravenous sedation by the anesthesiologist. Proximally to the area of interest, cotton webroll was circumferentially applied to the left thigh followed by a disposable tourniquet, and protected by a 1010 drape. The left lower leg and foot extremity where prepped and draped in the usual fashion. The extremity was exanguinated with an Esmarch band followed by inflation of the tourniquet to about 120 mmHg above the systolic blood pressure. A circumferential incision was made around the base of the fifth toe as proposed area of amputation; the incision was deepened through the subcutaneous tissue down to the bone: this was continued circumferentially. The metatarsal bone was exposed proximally with periosteal elevator and divided as proximally as possible with a small bone cutter. The specimen was removed from the surgical field and sent to pathology. Local vessels were identified and cauterized. The bone stump edge was smoothed with rongeaur. The surgical field was then irrigated with normal saline until clear. A 1/4 inch Natalia d rain was placed deep in the surgical field and allowed to exit through the surgical wound corner. The subcutaneous tissues were loosely approximated with deep inverted 2-0 Vicryl sutures and the skin was closed loosely with interrupted 2-0 Nylon vertical mattress sutures. Xeroform gauze was placed on the surgical wound followed by dry 4x4 dressings, ABD's to cover the entire area, and Kerlix roll. A prefabricated fiberglass padded splint was applied posteriorly to the extremity and kept in position with an REY bandage. This was allowed to cure while the extremity was functionally positioned. The tourniquet was deflated and removed; the tourniquet time was 43 minutes. The patient tolerated the procedure well, was awoken from the IV sedation, and transferred to the recovery room in satisfactory conditions.
[2019-10-08] MEDS ORDERED: FAMOTIDINE INJ/PF 20 MG/2 ML SDV IV SCH (22:00)
--- NOTE | 2019-10-08 22:17 | PDOC PROGRESS REPORT ---
Subjective Progress Note for:: 10/08/19 Subjective:: Seen and examined at bedside. Minimal pain left foot.He is awaiting result of the MRI of left foot for possible debridement or amputation if osteomyelitis is seen. Reason For Visit: DIABETIC FOOT ULCER Physical Exam Vital Signs: Temp Pulse Resp BP Pulse Ox 98 F 69 20 139/71 H 94 10/08/19 21:15 10/08/19 21:15 10/08/19 21:15 10/08/19 21:15 10/08/19 21:15 Intake & Output 10/07/19 10/08/19 10/09/19 06:59 06:59 06:59 Intake Total 460 1050 Output Total 75 202 Balance 385 848 Weight 95.7 kg General appearance: PRESENT: no acute distress, cooperative Head exam: PRESENT: atraumatic, normocephalic Eye exam: PRESENT: EOMI, PERRLA Mouth exam: PRESENT: moist Respiratory exam: PRESENT: clear to auscultation rohini, symmetrical, unlabored Cardiovascular exam: PRESENT: RRR, +S1, +S2 Pulses: PRESENT: normal carotid pulses GI/Abdominal exam: PRESENT: normal bowel sounds, soft. ABSENT: tenderness Rectal exam: PRESENT: deferred Extremities exam: PRESENT: other - necrotic based ulcer base of left fifth toe, non foul smelling Neurological exam: PRESENT: alert, awake, oriented to person, oriented to place, oriented to time, oriented to situation Psychiatric exam: PRESENT: normal mood Results Laboratory Results: 10/08/19 04:10 10/08/19 04:10 10/08/19 10/08/19 10/08/19 04:10 04:10 04:10 WBC 7.1 RBC 4.21 L Hgb 13.2 L Hct 38.2 MCV 91 MCH 31.5 MCHC 34.7 RDW 11.9 Plt Count 296 Sodium 139.8 Potassium 4.3 Chloride 106 Carbon Dioxide 23 Anion Gap 11 BUN 23 H Creatinine 0.88 Est GFR ( Amer) > 60 Glucose 75 Calcium 9.0 Magnesium 2.1 Total Bilirubin 0.6 AST 22 Alkaline Phosphatase 83 Total Protein 6.5 Albumin 3.5 Triglycerides 133 Cholesterol 159.41 LDL Cholesterol Direct 111 H VLDL Cholesterol 27.0 HDL Cholesterol 23 L TSH 1.57 Urine Color Urine Appearance Urine pH Ur Specific [place] Urine Protein Urine Glucose (UA) Urine Ketones Urine Blood Urine RBC (Auto) 10/08/19 04:21 WBC RBC Hgb Hct MCV MCH MCHC RDW Plt Count Sodium Potassium Chloride Carbon Dioxide Anion Gap BUN Creatinine Est GFR ( Amer) Glucose Calcium Magnesium Total Bilirubin AST Alkaline Phosphatase Total Protein Albumin Triglycerides Cholesterol LDL Cholesterol Direct VLDL Cholesterol HDL Cholesterol TSH Urine Color YELLOW Urine Appearance CLEAR Urine pH 5.0 Ur Specific [place] 1.020 Urine Protein NEGATIVE Urine Glucose (UA) NEGATIVE Urine Ketones TRACE H Urine Blood SMALL H Urine RBC (Auto) 2 Impressions: Foot X-Ray 10/07/19 12:28 IMPRESSION: Soft tissue ulceration and swelling about the lateral forefoot. No definitive findings of osteomyelitis. If high clinical concern MRI would be more sensitive. Venous Doppler Study 10/07/19 17:30 IMPRESSION: NO EVIDENCE DVT OR SVT IN THE LEFT LEG. Lower Extremity MRI 10/08/19 00:00 IMPRESSION: FINDINGS CONSISTENT WITH OSTEOMYELITIS INVOLVING THE MAJORITY OF THE PROXIMAL PHALANX OF THE 5TH TOE. THERE IS ASSOCIATED EDEMA/ INFLAMMATION IN THE ADJACENT SOFT TISSUES. NO EVIDENCE OF SOFT TISSUE ABSCESS. Assessment and Plan - Diagnosis (1) Diabetic foot ulcer Qualifiers: Diabetic foot ulcer location: midfoot Diabetes mellitus type: type 2 Laterality: left Non-pressure ulcer stage: unspecified non-pressure ulcer stage Qualified Code(s): E11.621 - Type 2 diabetes mellitus with foot ulcer; L97.429 - Non-pressure chronic ulcer of left heel and midfoot with unspecified severity Is this a current diagnosis for this admission?: Yes Plan: -Known diabetic presented to the ED with 3 weeks history of left foot pain with swelling and redness denies any fever -Has neuropathy secondary to diabetes -Physical exam showed necrotic base left toe ulcer -Surgery consulted -Showed findings consistent for osteomyelitis -Underwent left fifth toe amputation toe amputation -On meropenem and Vanco (2) Osteomyelitis Qualifiers: Osteomyelitis type: unspecified type Osteomyelitis location: foot Laterality: left Qualified Code(s): M86.9 - Osteomyelitis, unspecified Is this a current diagnosis for this admission?: Yes Plan: -Came in with necrotic based left fifth toe ulcer -Showed findings consistent with osteomyelitis -Blood culture negative preliminary report -Status post left fifth toe amputation today -Per Dr. Nunez's note specimen was sent to pathology unsure if bone biopsy culture was ordered. I talked to the lab and ordered a culture of the specimen however I am not sure what value this will be if bone biopsy was not done. This will help to guide treatment for osteomyelitis (3) Diabetes mellitus type 2 in obese Is this a current diagnosis for this admission?: Yes Plan: Known diabetic on metformin -A1c pending -We will put on sliding scale insulin -Accu-Cheks - Plan Summary Summary: Patient will be admitted to the medical floor he will receive routine supportive and symptomatic cares. He will be seen in consultation by Dr. Usman Khan for surgical evaluation and treatment. He will be continued on IV antibiotic therapy utilizing vancomycin and cefepime. He will receive morphine sulfate 2 to 4 mg IV every 2 hours as needed pain. He will receive Ativan 1 mg IV every 4 hours as needed for anxiety or restlessness. Before meals and at bedtime Accu- Cheks to be performed with sliding scale insulin used for hyperglycemia and a hypoglycemic protocol in place. Patient will be on a diabetic and cardiac restricted diet. Patient's home medications will be continued, as appropriate, and his medication list has been verified and reconciled. CBCs, metabolic profiles and additional laboratory and/or radiographic evaluations will be ob tained as appropriate. - Time Time Spent with patient: 15-24 minutes Medications reviewed and adjusted accordingly: Yes Anticipated Discharge Disposition: to be determined Anticipated Discharge Timeframe: within 48 hours
[2019-10-09 04:37] LABS: ABSOLUTE EOSINOPHILS # (AUTO) 0.1 10^3/uL (0.0-0.6); ABSOLUTE LYMPHOCYTES (AUTO) 1.1 10^3/uL (0.5-4.7); ABSOLUTE MONOCYTES (AUTO) 0.6 10^3/uL (0.1-1.4); ABSOLUTE NEUT (AUTO) 4.2 10^3/uL (1.7-8.2); BASOPHILS % (AUTO) 0.5 % (0-2); EOSINOPHILS % (AUTO) 2.4 % (0-6); HEMATOCRIT 39.7 % (37.9-51.0); HEMOGLOBIN 13.8 g/dL (13.5-17.0); LYMPHOCYTES % (AUTO) 18.2 % (13-45); MEAN CORPUSCULAR HEMOGLOBIN 31.6 pg (27.0-33.4); MEAN CORPUSCULAR HGB CONC 34.7 g/dL (32.0-36.0); MEAN CORPUSCULAR VOLUME 91 fl (80-97); MONOCYTES % (AUTO) 9.4 % (3-13); PLATELET COUNT 275 10^3/uL (150-450); RED BLOOD COUNT 4.37 10^6/uL (4.35-5.55); RED CELL DISTRIBUTION WIDTH 11.9 % (11.5-14.0); SEGMENTED NEUTROPHILS % (AUTO) 69.5 % (42-78); TOTAL CELLS COUNTED % (AUTO) 100 %
[2019-10-09 05:03] LABS: ANION GAP 10 (5-19); BLOOD UREA NITROGEN 16 mg/dL (7-20); CALCIUM 8.6 mg/dL (8.4-10.2); CARBON DIOXIDE 24 mmol/L (22-30); CHLORIDE 105 mmol/L (98-107); GLUCOSE 93 mg/dL (75-110); POTASSIUM 4.5 mmol/L (3.6-5.0)
[2019-10-09] MEDS: MORPHINE SULFATE 10 MG/ML INJ IV PRN ×2 (06:04→21:31)
[2019-10-09] MEDS: MEROPENEM 500 MG in NORMAL SALINE 50 ML IV SCH ×3 (06:05→21:32)
[2019-10-09] MEDS: NORMAL SALINE 1000 ML 1,000 ML IV PRN ×2 (06:06→17:35)
[2019-10-09] MEDS: HEPARIN SOD (PORCINE) 5,000 UNIT/ML 1 ML VIAL SUBCUT SCH ×3 (08:57→21:34)
[2019-10-09] MEDS: VANCOMYCIN HCL 1,000 MG in DEXTROSE 5%-WATER 250 ML IV SCH ×2 (09:09→21:32)
[2019-10-09] MEDS: DOCUSATE SODIUM 100 MG CAPSULE PO SCH ×2 (09:36→17:36)
[2019-10-09] MEDS: FAMOTIDINE 20 MG TABLET PO SCH ×2 (09:36→21:33)
--- NOTE | 2019-10-09 09:59 | PDOC PROGRESS REPORT ---
Subjective Progress Note for:: 10/09/19 Subjective:: The patient is resting in bed. He appears in good spirits. He does not report any pain. He has no other complaints. Reason For Visit: DIABETIC FOOT ULCER Physical Exam Vital Signs: Temp Pulse Resp BP Pulse Ox 99.0 F 87 16 148/57 H 97 10/09/19 04:09 10/09/19 04:09 10/09/19 04:09 10/09/19 04:09 10/09/19 04:09 Intake & Output 10/08/19 10/09/19 10/10/19 06:59 06:59 06:59 Intake Total 460 2600 Output Total 75 902 Balance 385 1698 Weight 95.7 kg 96.2 kg General appearance: PRESENT: no acute distress, cooperative, well-developed Head exam: PRESENT: atraumatic, normocephalic Ear exam: PRESENT: normal external ear exam. ABSENT: bleeding, drainage Respiratory exam: PRESENT: clear to auscultation rohini, symmetrical, unlabored. ABSENT: rales, rhonchi, tachypnea, wheezes Cardiovascular exam: PRESENT: RRR, +S1, +S2, systolic murmur - 2/6. ABSENT: bradycardia, diastolic murmur, irregular rhythm, tachycardia GI/Abdominal exam: PRESENT: normal bowel sounds, soft. ABSENT: tenderness Rectal exam: PRESENT: deferred Gentrourinary exam: ABSENT: indwelling catheter Extremities exam: PRESENT: other - Dressing on left foot from recent amputation. ABSENT: pedal edema Musculoskeletal exam: PRESENT: deformity - Amputation left fifth toe. ABSENT: ambulatory, normal inspection Neurological exam: PRESENT: alert, awake, oriented to person, oriented to place, oriented to time, oriented to situation, CN II-XII grossly intact. ABSENT: altered Psychiatric exam: PRESENT: appropriate affect, flat affect. ABSENT: agitated, anxious Focused psych exam: ABSENT: delusional, paranoid, restlessness Skin exam: PRESENT: dry, normal color, warm. ABSENT: rash Results Laboratory Results: 10/09/19 04:24 10/09/19 04:24 10/09/19 10/09/19 04:24 04:24 WBC 6.0 RBC 4.37 Hgb 13.8 Hct 39.7 MCV 91 MCH 31.6 MCHC 34.7 RDW 11.9 Plt Count 275 Seg Neutrophils % 69.5 Sodium 139.4 Potassium 4.5 Chloride 105 Carbon Dioxide 24 Anion Gap 10 BUN 16 Creatinine 0.85 Est GFR ( Amer) > 60 Glucose 93 Calcium 8.6 Impressions: Foot X-Ray 10/07/19 12:28 IMPRESSION: Soft tissue ulceration and swelling about the lateral forefoot. No definitive findings of osteomyelitis. If high clinical concern MRI would be more sensitive. Venous Doppler Study 10/07/19 17:30 IMPRESSION: NO EVIDENCE DVT OR SVT IN THE LEFT LEG. Lower Extremity MRI 10/08/19 00:00 IMPRESSION: FINDINGS CONSISTENT WITH OSTEOMYELITIS INVOLVING THE MAJORITY OF THE PROXIMAL PHALANX OF THE 5TH TOE. THERE IS ASSOCIATED EDEMA/ INFLAMMATION IN THE ADJACENT SOFT TISSUES. NO EVIDENCE OF SOFT TISSUE ABSCESS. Assessment and Plan - Diagnosis (1) Osteomyelitis Qualifiers: Osteomyelitis type: subacute Osteomyelitis location: foot Laterality: left Qualified Code(s): M86.272 - Subacute osteomyelitis, left ankle and foot Is this a current diagnosis for this admission?: Yes Plan: The patient successfully underwent amputation of the left fifth toe. Dressing remains in place. The amputated tissue was sent to the lab. Pathology results are pending. No positive culture results at this point. We will continue vancomycin and meropenem. If it is confirmed that there are clear margins the patient's antibiotic therapy may only be 10 days post surgery (2) Diabetic foot ulcer Qualifiers: Diabetic foot ulcer location: midfoot Diabetes mellitus type: type 2 Laterality: left Non-pressure ulcer stage: unspecified non-pressure ulcer stage Qualified Code(s): E11.621 - Type 2 diabetes mellitus with foot ulcer; L97.429 - Non-pressure chronic ulcer of left heel and midfoot with unspecified severity Is this a current diagnosis for this admission?: Yes Plan: -Toe amputated. Pathology pending. Continue antibiotic therapy. Will need offloading shoe as he will be heel weightbearing initially. Physical therapy will be seeing the patient as well. (3) Hyperglycemia due to type 2 diabetes mellitus Qualifiers: Diabetes mellitus assisted insulin use: without assisted use Qualified Code(s): E11.65 - Type 2 diabetes mellitus with hyperglycemia Is this a current diagnosis for this admission?: Yes Plan: Currently on Accu-Cheks and sliding scale coverage. Once his oral diet is consistent we will add back the glimepiride - Plan Summary Summary: Patient will be admitted to the medical floor he will receive routine supportive and symptomatic cares. He will be seen in consultation by Dr. Usman Khan for surgical evaluation and treatment. He will be continued on IV antibiotic therapy utilizing vancomycin and cefepime. He will receive morphine sulfate 2 to 4 mg IV every 2 hours as needed pain. He will receive Ativan 1 mg IV every 4 hours as needed for anxiety or restlessness. Before meals and at bedtime Accu- Cheks to be performed with sliding scale insulin used for hyperglycemia and a hypoglycemic protocol in place. Patient will be on a diabetic and cardiac restricted diet. Patient's home medications will be continued, as appropriate, and his medication list has been verified and reconciled. CBCs, metabolic profiles and additional laboratory and/or radiographic evaluations will be obtained as appropriate. - Time Time Spent with patient: Less than 15 minutes Medications reviewed and adjusted accordingly: Yes Anticipated Discharge Disposition: Home with Home Health Anticipated Discharge Timeframe: Unknown
[2019-10-09 10:01] LABS: VANCOMYCIN,TROUGH 19.8 ug/mL (5.0-20.0)
--- NOTE | 2019-10-09 10:06 | PDOC PROGRESS REPORT ---
Subjective Progress Note for:: 10/09/19 Reason For Visit: DIABETIC FOOT ULCER Physical Exam Vital Signs: Temp Pulse Resp BP Pulse Ox 99.0 F 92 16 130/54 H 91 L 10/09/19 08:03 10/09/19 08:03 10/09/19 08:03 10/09/19 08:03 10/09/19 08:03 Intake & Output 10/08/19 10/09/19 10/10/19 06:59 06:59 06:59 Intake Total 460 2600 Output Total 75 902 Balance 385 1698 Weight 95.7 kg 96.2 kg Results Laboratory Results: 10/09/19 04:24 10/09/19 04:24 10/09/19 10/09/19 04:24 04:24 WBC 6.0 RBC 4.37 Hgb 13.8 Hct 39.7 MCV 91 MCH 31.6 MCHC 34.7 RDW 11.9 Plt Count 275 Seg Neutrophils % 69.5 Sodium 139.4 Potassium 4.5 Chloride 105 Carbon Dioxide 24 Anion Gap 10 BUN 16 Creatinine 0.85 Est GFR ( Amer) > 60 Glucose 93 Calcium 8.6 Impressions: Foot X-Ray 10/07/19 12:28 IMPRESSION: Soft tissue ulceration and swelling about the lateral forefoot. No definitive findings of osteomyelitis. If high clinical concern MRI would be more sensitive. Venous Doppler Study 10/07/19 17:30 IMPRESSION: NO EVIDENCE DVT OR SVT IN THE LEFT LEG. Lower Extremity MRI 10/08/19 00:00 IMPRESSION: FINDINGS CONSISTENT WITH OSTEOMYELITIS INVOLVING THE MAJORITY OF THE PROXIMAL PHALANX OF THE 5TH TOE. THERE IS ASSOCIATED EDEMA/ INFLAMMATION IN THE ADJACENT SOFT TISSUES. NO EVIDENCE OF SOFT TISSUE ABSCESS. Assessment & Plan - Diagnosis (1) Osteomyelitis Qualifiers: Osteomyelitis type: unspecified type Osteomyelitis location: foot Laterality: left Qualified Code(s): M86.9 - Osteomyelitis, unspecified Is this a current diagnosis for this admission?: Yes - Time Anticipated Discharge Disposition: unknown Anticipated Discharge Timeframe: unknown - Plan Summary Plan Summary: 69-year-old male status post left fifth toe amputation. His left foot and leg is in a splint. I will leave the dressing in place today. The dressing is clean, dry, and intact. He may ambulate on the heel only. Keep the leg elevated when not ambulating. Surgery will continue to follow.
[2019-10-09 21:56] LABS: VANCOMYCIN,TROUGH 13.2 ug/mL (5.0-20.0)
[2019-10-10 05:09] LABS: ABSOLUTE EOSINOPHILS # (AUTO) 0.2 10^3/uL (0.0-0.6); ABSOLUTE LYMPHOCYTES (AUTO) 2.1 10^3/uL (0.5-4.7); ABSOLUTE NEUT (AUTO) 4.1 10^3/uL (1.7-8.2); BASOPHILS % (AUTO) 0.4 % (0-2); EOSINOPHILS % (AUTO) 2.5 % (0-6); HEMOGLOBIN 12.4 g/dL (13.5-17.0); LYMPHOCYTES % (AUTO) 28.4 % (13-45); MEAN CORPUSCULAR HEMOGLOBIN 31.2 pg (27.0-33.4); MEAN CORPUSCULAR HGB CONC 34.3 g/dL (32.0-36.0); MEAN CORPUSCULAR VOLUME 91 fl (80-97); MONOCYTES % (AUTO) 13.4 % (3-13); PLATELET COUNT 266 10^3/uL (150-450); RED BLOOD COUNT 3.96 10^6/uL (4.35-5.55); SEGMENTED NEUTROPHILS % (AUTO) 55.3 % (42-78); TOTAL CELLS COUNTED % (AUTO) 100 %; WHITE BLOOD COUNT 7.4 10^3/uL (4.0-10.5)
[2019-10-10 05:20] LABS: ANION GAP 7 (5-19); BLOOD UREA NITROGEN 15 mg/dL (7-20); CALCIUM 7.9 mg/dL (8.4-10.2); CARBON DIOXIDE 24 mmol/L (22-30); CHLORIDE 105 mmol/L (98-107); GLUCOSE 136 mg/dL (75-110); POTASSIUM 4.1 mmol/L (3.6-5.0)
[2019-10-10] MEDS: MEROPENEM 500 MG in NORMAL SALINE 50 ML IV SCH ×2 (05:32→14:31)
[2019-10-10] MEDS: MORPHINE SULFATE 10 MG/ML INJ IV PRN (06:07)
[2019-10-10] MEDS: NORMAL SALINE 1000 ML 1,000 ML IV PRN (06:12)
--- NOTE | 2019-10-10 08:54 | PDOC PROGRESS REPORT ---
Subjective Progress Note for:: 10/10/19 Subjective:: Patient comfortable without complaints Reason For Visit: DIABETIC FOOT ULCER Physical Exam Vital Signs: Temp Pulse Resp BP Pulse Ox 99.5 F 82 16 115/45 L 92 10/10/19 03:56 10/10/19 03:56 10/10/19 03:56 10/10/19 03:56 10/10/19 03:56 Intake & Output 10/09/19 10/10/19 10/11/19 06:59 06:59 06:59 Intake Total 2600 3620 Output Total 902 1700 Balance 1698 1920 Weight 96.2 kg 99.1 kg General appearance: PRESENT: no acute distress Extremities exam: PRESENT: other - Left foot = diffuse edema, minimal erythema around the fifth toe amputation site, surgical wound slightly open, sutures in place, granulating, no odor, no drainage, no tenderness Results Laboratory Results: 10/10/19 04:20 10/10/19 04:20 10/10/19 10/10/19 04:20 04:20 WBC 7.4 RBC 3.96 L Hgb 12.4 L Hct 36.0 L MCV 91 MCH 31.2 MCHC 34.3 RDW 12.0 Plt Count 266 Seg Neutrophils % 55.3 Sodium 136.0 L Potassium 4.1 Chloride 105 Carbon Dioxide 24 Anion Gap 7 BUN 15 Creatinine 0.90 Est GFR ( Amer) > 60 Glucose 136 H Calcium 7.9 L Impressions: Foot X-Ray 10/07/19 12:28 IMPRESSION: Soft tissue ulceration and swelling about the lateral forefoot. No definitive findings of osteomyelitis. If high clinical concern MRI would be more sensitive. Venous Doppler Study 10/07/19 17:30 IMPRESSION: NO EVIDENCE DVT OR SVT IN THE LEFT LEG. Lower Extremity MRI 10/08/19 00:00 IMPRESSION: FINDINGS CONSISTENT WITH OSTEOMYELITIS INVOLVING THE MAJORITY OF THE PROXIMAL PHALANX OF THE 5TH TOE. THERE IS ASSOCIATED EDEMA/ INFLAMMATION IN THE ADJACENT SOFT TISSUES. NO EVIDENCE OF SOFT TISSUE ABSCESS. Assessment & Plan - Diagnosis (1) Diabetic foot ulcer Qualifiers: Diabetic foot ulcer location: midfoot Diabetes mellitus type: type 2 Laterality: left Non-pressure ulcer stage: unspecified non-pressure ulcer stage Qualified Code(s): E11.621 - Type 2 diabetes mellitus with foot ulcer; L97.429 - Non-pressure chronic ulcer of left heel and midfoot with unspecified severity Is this a current diagnosis for this admission?: Yes (2) Osteomyelitis Qualifiers: Osteomyelitis type: subacute Osteomyelitis location: foot Laterality: left Qualified Code(s): M86.272 - Subacute osteomyelitis, left ankle and foot Is this a current diagnosis for this admission?: Yes - Time Anticipated Discharge Disposition: Home, Self Care Anticipated Discharge Timeframe: within 24 hours - Plan Summary Plan Summary: Assessment: Postoperative day #2 following ray amputation of left fifth toe due to osteomyelitis S/p excision large plantar left foot ulcer in the fifth metatarsophalangeal joint Additional side wound left partially open after surgery due to difficult approximation of the skin edges; however, the wound appears to be clean, granulating, with minimal drainage Plan: Patient could be discharged home today as per primary care service Follow-up in surgery clinic in 3 weeks Normal saline wet-to-dry dressing changes twice a day to the left foot wound site, cover with 4 x 4's, ABDs, and Kerlix Absolute no lower extremity weightbearing for 6 weeks Keep left lower extremity elevated when in bed or sitting up Keep splint for 1 more week, then remove it Patient allowed to have normal range of motion of the left ankle and toes Sponge bath only, shower allowed only if patient wears a left lower extremity shower sleeve, no baths until the wound is fully healed No antibiotic needed No opioid painkillers, Tylenol only for pain
[2019-10-10] MEDS ORDERED: VANCOMYCIN HCL 1,250 MG in DEXTROSE 5%-WATER 250 ML IV SCH (10:00)
[2019-10-10] MEDS: DOCUSATE SODIUM 100 MG CAPSULE PO SCH (10:04)
[2019-10-10] MEDS: HEPARIN SOD (PORCINE) 5,000 UNIT/ML 1 ML VIAL SUBCUT SCH (10:04)
[2019-10-10] MEDS: FAMOTIDINE 20 MG TABLET PO SCH (10:04)
[2019-10-10] MEDS ORDERED: PROMETHAZINE HCL INJ 25 MG/1 ML VIAL IV PRN (12:00)
[2019-10-10 12:34] VITALS: BP 134/59
--- NOTE | 2019-10-10 13:27 | PDOC DISCHARGE SUMMARY ---
Impression - Admit/DC Date/PCP Admission Date/Primary Care Provider: 10/07/19 20:10 TERRI BRAUN, Discharge Date: 10/10/19 - Assessment Summary: Patient will be admitted to the medical floor he will receive routine supportive and symptomatic cares. He will be seen in consultation by Dr. Usman Khan for surgical evaluation and treatment. He will be continued on IV antibiotic therapy utilizing vancomycin and cefepime. He will receive morphine sulfate 2 to 4 mg IV every 2 hours as needed pain. He will receive Ativan 1 mg IV every 4 hours as needed for anxiety or restlessness. Before meals and at bedtime Accu- Cheks to be performed with sliding scale insulin used for hyperglycemia and a hypoglycemic protocol in place. Patient will be on a diabetic and cardiac restricted diet. Patient's home medications will be continued, as appropriate, and his medication list has been verified and reconciled. CBCs, metabolic profiles and additional laboratory and/or radiographic evaluations will be obtained as appropriate. (1) Osteomyelitis Qualifiers: Osteomyelitis type: subacute Osteomyelitis location: foot Laterality: left Qualified Code(s): M86.272 - Subacute osteomyelitis, left ankle and foot Is this a current diagnosis for this admission?: Yes Plan: The patient successfully underwent amputation of the left fifth toe. Dressing remains in place. The amputated tissue was sent to the lab. Pathology results are pending. No positive culture results at this point. We will continue vancomycin and meropenem. If it is confirmed that there are clear margins the patient's antibiotic therapy may only be 10 days post surgery 10/10/2019-surgery cleared the patient to go home without antibiotics. Surgical wound looks clean. Patient is advised to follow-up with surgical team in 3 weeks time for suture removal. And is advised about 6 weeks of bedrest he can use the bedside commode. Advised not to do weightbearing and not to walk with a walker. (2) Diabetic foot ulcer Qualifiers: Diabetic foot ulcer location: midfoot Diabetes mellitus type: type 2 Laterality: left Non-pressure ulcer stage: unspecified non-pressure ulcer stage Qualified Code(s): E11.621 - Type 2 diabetes mellitus with foot ulcer; L97.429 - Non-pressure chronic ulcer of left heel and midfoot with unspecified severity Is this a current diagnosis for this admission?: Yes Plan: -Toe amputated. Pathology pending. Continue antibiotic therapy. Will need offloading shoe as he will be heel weightbearing initially. Physical therapy will be seeing the patient as well. 10/10/2019-status post surgery cleared by surgical team to go home without antibiotic therapy at this time. Surgical recommendation is nonweightbearing for 6 weeks. (3) Hyperglycemia due to type 2 diabetes mellitus Qualifiers: Diabetes mellitus longterm insulin use: without termite control technician use Qualified Code(s): E11.65 - Type 2 diabetes mellitus with hyperglycemia Is this a current diagnosis for this admission?: Yes Plan: Currently on Accu-Cheks and sliding scale coverage. Once his oral diet is consistent we will add back the glimepiride - Additional Information Resuscitation Status: Full Code Discharge Diet: Cardiac, Diabetic Discharge Activity: Other Referrals: [facility] [Provider Group] - 10/29/19 11:00 am Prescriptions: Oxycodone HCl/Acetaminophen [Percocet 5-325 mg Tablet] 1 tab PO Q4HP PRN 3 Days #15 tab PRN Reason: Home Medications: Glimepiride [Amaryl 4 mg Tablet] 4 mg PO DAILY 10/08/19 Oxycodone HCl/Acetaminophen [Percocet 5-325 mg Tablet] 1 tab PO Q4HP PRN 3 Days #15 tab 10/10/19 History of Present Illiness History of Present Illness: CHRISSIE JOSEPH is a 69 year old male 69 year old male who presents the emergency room with a 3-week history of left foot pain. He admits progressively worsening pain accompanied by swelling and redness of his left foot gradually spreading to his left lower leg over the last 3 weeks. The pain is a constant discomfort of mild intensity without radiation, that is mildly increased with weightbearing. The pain is also associated with a foul odor emanating from his left foot over the last few days. He denies other associated or accompanying signs and symptoms. He denies prior similar episodes. He has not identified any additional aggravating or ameliorating factors for his left foot pain. He was seen in his doctor's office today who recommended he come to the emergency room for treatment. In the emergency room he was noted to have a diabetic foot ulcer with eschar over the lateral aspect of the plantar portion of the left midfoot/forefoot. He was subsequently admitted to the hospital for further evaluation and treatment with surgical c onsultation to be performed by Dr. Khan. Hospital Course Hospital Course: 69 year old male who presents the emergency room with a 3-week history of left foot pain. He admits progressively worsening pain accompanied by swelling and redness of his left foot gradually spreading to his left lower leg over the last 3 weeks. The pain is a constant discomfort of mild intensity without radiation, that is mildly increased with weightbearing. The pain is also associated with a foul odor emanating from his left foot over the last few days. He denies other associated or accompanying signs and symptoms. He denies prior similar episodes. He has not identified any additional aggravating or ameliorating factors for his left foot pain. He was seen in his doctor's office today who recommended he come to the emergency room for treatment. In the emergency room he was noted to have a diabetic foot ulcer with eschar over the lateral aspect of the plantar portion of the left midfoot/forefoot. He was subsequently admitted to the hospital for further evaluation and treatment with surgical consultation to be performed by Dr. Khan. 10/07-Seen and examined at bedside. Minimal pain left foot.He is awaiting result of the MRI of left foot for possible debridement or amputation if osteomyelitis is seen. 10/08-The patient is resting in bed. He appears in good spirits. He does not report any pain. He has no other complaints. Physical Exam Vital Signs: Temp Pulse Resp BP Pulse Ox 99.3 F 77 17 130/66 H 92 10/10/19 12:18 10/10/19 12:18 10/10/19 12:18 10/10/19 12:18 10/10/19 12:18 Intake & Output 10/09/19 10/10/19 10/11/19 06:59 06:59 06:59 Intake Total 2600 3620 490 Output Total 902 1700 Balance 1698 1920 490 Weight 96.2 kg 99.1 kg General appearance: PRESENT: no acute distress, cooperative, well-developed Head exam: PRESENT: atraumatic Eye exam: PRESENT: PERRLA Ear exam: PRESENT: normal external ear exam Mouth exam: PRESENT: moist, tongue midline Teeth exam: PRESENT: poor dentation Neck exam: ABSENT: carotid bruit, JVD, lymphadenopathy, thyromegaly Respiratory exam: PRESENT: clear to auscultation rohini. ABSENT: rales, rhonchi, wheezes Cardiovascular exam: PRESENT: RRR. ABSENT: diastolic murmur, rubs, systolic murmur GI/Abdominal exam: PRESENT: normal bowel sounds, soft. ABSENT: distended, guarding, mass, organolmegaly, rebound, tenderness Rectal exam: PRESENT: deferred Extremities exam: PRESENT: other - Left foot wound looks clean and covered with a dressing at this time. Neurological exam: PRESENT: alert, awake, oriented to person, oriented to place, oriented to time, oriented to situation, CN II-XII grossly intact. ABSENT: motor sensory deficit Psychiatric exam: PRESENT: appropriate affect, normal mood. ABSENT: homicidal ideation, suicidal ideation Results Laboratory Results: WBC 7.4 10^3/uL (4.0-10.5) 10/10/19 04:20 RBC 3.96 10^6/uL (4.35-5.55) L 10/10/19 04:20 Hgb 12.4 g/dL (13.5-17.0) L 10/10/19 04:20 Hct 36.0 % (37.9-51.0) L 10/10/19 04:20 MCV 91 fl (80-97) 10/10/19 04:20 MCH 31.2 pg (27.0-33.4) 10/10/19 04:20 MCHC 34.3 g/dL (32.0-36.0) 10/10/19 04:20 RDW 12.0 % (11.5-14.0) 10/10/19 04:20 Plt Count 266 10^3/uL (150-450) 10/10/19 04:20 Lymph % (Auto) 28.4 % (13-45) 10/10/19 04:20 [place] % (Auto) 13.4 % (3-13) H 10/10/19 04:20 Eos % (Auto) 2.5 % (0-6) 10/10/19 04:20 Baso % (Auto) 0.4 % (0-2) 10/10/19 04:20 Absolute Neuts (auto) 4.1 10^3/uL (1.7-8.2) 10/10/19 04:20 Absolute Lymphs (auto) 2.1 10^3/uL (0.5-4.7) 10/10/19 04:20 Absolute Monos (auto) 1.0 10^3/uL (0.1-1.4) 10/10/19 04:20 Absolute Eos (auto) 0.2 10^3/uL (0.0-0.6) 10/10/19 04:20 Absolute Basos (auto) 0.0 10^3/uL (0.0-0.2) 10/10/19 04:20 Seg Neutrophils % 55.3 % (42-78) 10/10/19 04:20 ESR 97 mm/hr (0-20) H 10/07/19 15:28 Sodium 136.0 mmol/L (137-145) L 10/10/19 04:20 Potassium 4.1 mmol/L (3.6-5.0) 10/10/19 04:20 Chloride 105 mmol/L (98-107) 10/10/19 04:20 Carbon Dioxide 24 mmol/L (22-30) 10/10/19 04:20 Anion Gap 7 (5-19) 10/10/19 04:20 BUN 15 mg/dL (7-20) 10/10/19 04:20 Creatinine 0.90 mg/dL (0.52-1.25) 10/10/19 04:20 Est GFR ( Amer) > 60 (>60) 10/10/19 04:20 Est GFR (MDRD) Non-Af > 60 (>60) 10/10/19 04:20 Glucose 136 mg/dL (75-110) H 10/10/19 04:20 POC Glucose 187 mg/dL (70-110) H 10/10/19 11:38 Hemoglobin A1c % 7.2 % (4.7-6.0) H 10/08/19 22:40 Calcium 7.9 mg/dL (8.4-10.2) L 10/10/19 04:20 Magnesium 2.1 mg/dL (1.6-2.3) 10/08/19 04:10 Total Bilirubin 0.6 mg/dL (0.2-1.3) 10/08/19 04:10 Direct Bilirubin 0.3 mg/dL (0.0-0.4) 10/08/19 04:10 Neonat Total Bilirubin Not Reportable 10/08/19 04:10 Neonat Direct Bilirubin Not Reportable 10/08/19 04:10 Neonat Indirect Bili Not Reportable 10/08/19 04:10 AST 22 U/L (17-59) 10/08/19 04:10 ALT 18 U/L (<50) 10/08/19 04:10 Alkaline Phosphatase 83 U/L (38-126) 10/08/19 04:10 C-Reactive Protein 52.8 mg/L (<10.0) H 10/07/19 14:41 Total Protein 6.5 g/dL (6.3-8.2) 10/08/19 04:10 Albumin 3.5 g/dL (3.5-5.0) 10/08/19 04:10 Triglycerides 133 mg/dL (<150) 10/08/19 04:10 Cholesterol 159.41 mg/dL (0-200) 10/08/19 04:10 LDL Cholesterol Direct 111 mg/dL (<100) H 10/08/19 04:10 VLDL Cholesterol 27.0 mg/dL (10-31) 10/08/19 04:10 HDL Cholesterol 23 mg/dL (>40) L 10/08/19 04:10 Lipase 38.1 U/L (23-300) 10/07/19 14:41 TSH 1.57 uIU/mL (0.47-4.68) 10/08/19 04:10 Urine Color YELLOW 10/08/19 04:21 Urine Appearance CLEAR 10/08/19 04:21 Urine pH 5.0 (5.0-9.0) 10/08/19 04:21 Ur Specific [place] 1.020 10/08/19 04:21 Urine Protein NEGATIVE mg/dL (NEGATIVE) 10/08/19 04:21 Urine Glucose (UA) NEGATIVE mg/dL (NEGATIVE) 10/08/19 04:21 Urine Ketones TRACE mg/dL (NEGATIVE) H 10/08/19 04:21 Urine Blood SMALL (NEGATIVE) H 10/08/19 04:21 Urine Nitrite (Reflex) NEGATIVE (NEGATIVE) 10/08/19 04:21 Urine Bilirubin NEGATIVE (NEGATIVE) 10/08/19 04:21 Urine Urobilinogen NEGATIVE mg/dL (<2.0) 10/08/19 04:21 Leukocyte Esterase Rfl NEGATIVE (NEGATIVE) 10/08/19 04:21 Urine RBC (Auto) 2 /HPF 10/08/19 04:21 Urine WBC (Reflex) 1 /HPF 10/08/19 04:21 Squamous Epi Cells Auto <1 /HPF 10/08/19 04:21 Urine Mucus (Auto) RARE /LPF 10/08/19 04:21 Urine Ascorbic Acid NEGATIVE (NEGATIVE) 10/08/19 04:21 Time Trough Drawn 211810/09/19 21:19 Vancomycin Trough 13.2 ug/mL (5.0-20.0) 10/09/19 21:19 Impressions: Foot X-Ray 10/07/19 12:28 IMPRESSION: Soft tissue ulceration and swelling about the lateral forefoot. No definitive findings of osteomyelitis. If high clinical concern MRI would be more sensitive. Venous Doppler Study 10/07/19 17:30 IMPRESSION: NO EVIDENCE DVT OR SVT IN THE LEFT LEG. Lower Extremity MRI 10/08/19 00:00 IMPRESSION: NO EVIDENCE FOR OSTEOMYELITIS. THERE IS DIFFUSE SUBCUTANEOUS EDEMA. Lower Extremity MRI 10/08/19 00:00 IMPRESSION: FINDINGS CONSISTENT WITH OSTEOMYELITIS INVOLVING THE MAJORITY OF THE PROXIMAL PHALANX OF THE 5TH TOE. THERE IS ASSOCIATED EDEMA/ INFLAMMATION IN THE ADJACENT SOFT TISSUES. NO EVIDENCE OF SOFT TISSUE ABSCESS. Plan Plan of Treatment: Patient is strongly advised to avoid weightbearing for last 6 weeks. He can use bedside commode. He needs to follow-up with surgical team in 3 weeks time for suture removal. Time Spent: Greater than 30 Minutes Stroke Is this a Stroke Patient?: No Acute Heart Failure - Is this a Heart Failure Patient?: No
== END 2019-10-10 14:57 | disposition home or self-care (01) | DRG 617 ==
LOC: ER 11:23 → EH 20:10 → 5 22:03
PROVIDERS: ADMIT Emergency Medicine; ATTEND Internal Medicine
PROC: 0JBR0ZZ Excision of Left Foot Subcutaneous Tissue and Fascia, Open Approach (ICD-10-PCS; 2019-10-08)
PROC: 0Y6Y0Z3 Detachment at Left 5th Toe, Low, Open Approach (ICD-10-PCS; principal; 2019-10-08 15:10)
DX: E11.69 Type 2 diabetes mellitus with other specified complication (principal); L97.429 Non-pressure chronic ulcer of left heel and midfoot with unspecified severity; M86.172 Other acute osteomyelitis, left ankle and foot; L03.116 Cellulitis of left lower limb; E11.621 Type 2 diabetes mellitus with foot ulcer; E11.42 Type 2 diabetes mellitus with diabetic polyneuropathy; I10 Essential (primary) hypertension; M15.9 Polyosteoarthritis, unspecified; B35.1 Tinea unguium; Z79.84 Long term (current) use of oral hypoglycemic drugs; Z79.82 Long term (current) use of aspirin; Z79.899 Other long term (current) drug therapy
CPT/HCPCS: 01480; 36415; 80048; 80053; 80061; 80202; 81001; 82962; 83036; 83690; 83735; 84443; 85025; 85027; 85652; 86140; 87040; 88305; 88311; 93971; 94799; 96374; 99140; 99285; J1644; J2185; J2250; J2270; J2405; J2704; J3010; J3370; J3490; J7030; J7060